=== PATIENT | female | born 1990 | race Caucasian/White ===

== ENCOUNTER 2016-06-05 13:26 | Emergency (ER) | payer OTHER ==
[~2016-06-05] VITALS: Ht 167.6 cm; Wt 69.0 kg
[2016-06-05 13:29] VITALS: TEMP 36.7; Ht 167.6 cm; Wt 69.0 kg
[2016-06-05] MEDS ORDERED: BCPILLS PO (13:38)
[2016-06-05] MEDS ORDERED: SERT50TA PO (13:38)
[2016-06-05 14:26] LABS: BASO % 0.9 %; BASO ABS # 0.07 K/uL (0-0.2); COMPLETE YES; EOS % 2.4 %; HEMATOCRIT 35.3 % (37-47); IG% 0.3 %; LYMPH % 16.1 %; LYMPH ABS # 1.27 K/uL (1.2-3.4); MEAN CELL VOLUME 83.8 fL (80-100); MEAN CORPUSCULAR HEMOGLOBIN 27.3 pg (25-34); MEAN CORPUSCULAR HGB CONC 32.6 g/dl (32-36); MEAN PLATELET VOLUME 9.9 fL (7.4-10.4); MONO % 6.9 %; NEUT % 73.4 %; PLATELET COUNT 319 K/uL (130-400); RED BLOOD COUNT 4.21 M/uL (4.2-5.4); WHITE BLOOD COUNT 7.87 K/uL (4.8-10.8)
[2016-06-05] MEDS ORDERED: AMOXICILLIN/CLAVULANATE TAB 875 MG TAB PO STA (14:41)
[2016-06-05] MEDS ORDERED: AMPICILLIN/SULBACTAM SOD INJ 3,000 MG in SODIUM CHLORIDE 0.9% 100ML 100 ML IV ONE (14:45)
[2016-06-05 14:58] LABS: BUN/CREATININE RATIO 14.7 (10-20); CALCIUM 8.6 mg/dl (8.5-10.1); CREATININE 0.84 mg/dl (0.60-1.20); POTASSIUM 4.6 mmol/L (3.5-5.1)
[2016-06-05] MEDS ORDERED: EMPTY 8 DRAM VIAL ONE (14:58)
[2016-06-05] MEDS ORDERED: AMOX875T PO (15:23)
[2016-06-05 15:43] VITALS: BP 122/82; PULSE 81; O2SAT 99
--- NOTE | 2016-06-05 17:15 | EMERGENCY ROOM VISIT NOTE ---
History Report prepared by Mariela: Armando Martinez Under the Supervision of: Dr. Jose Eduardo Mayer M.D. First contact with patient: 13:58 Chief Complaint: WOUND INFECTION Stated Complaint: CAT SCRATCH, SWOLLEN HOT ABSCESS, PUS History of Present Illness The patient is a 25 year old female who presents to the Emergency Room with complaints of an acute wound infection that started this morning. The patient was scratched by her cat when she was walking it in a park yesterday. The cat was frightened by a dog when the incident occurred. The patient notes that this morning the area where she was scratched became tender, swollen and warm. The patient had the wound cleaned at Urgent Care, but was referred to the ED for IV antibiotics. The patient's eye was not scratched. The cat is healthy and up to date on vaccinations. The patient does not have any known allergies. She denies any medical problems. Patient denies LOC, headache, fevers, chills, diaphoresis , visual changes, neck pain, chest pain, breathing difficulties, nausea, vomiting, abdominal pain, back pain, melena, hematochezia, urinary symptoms, numbness, weakness, lymphadenopathy, other rashes, or other complaints. Source of History: patient Onset: this morning Position: other (left cheek) Quality: other (cat scratch infection) Timing: other (acute) Review of Systems See HPI for pertinent positives and negatives. A total of ten systems were reviewed and were otherwise negative. Past Medical & Surgical Medical Problems: (1) No known problems Family History No pertinent family history Social History Smoking Status: Never Smoker Occupation Status: [employer] student Current/Historical Medications Scheduled Amoxicillin & Pot Clavulanate (Augmentin 875-125 mg), 875 MG PO BID Control Pills ( Control Pills), 1 TAB PO DAILY Sertraline Hcl (Zoloft), 125 MG PO DAILY Allergies Coded Allergies: No Known Allergies (Unverified , 06/05/16) Physical Exam Vital Signs Date Time Temp Pulse Resp B/P Pulse Ox O2 Delivery O2 Flow Rate FiO2 06/05/16 15:43 81 16 122/82 99 06/05/16 13:29 36.7 86 18 125/82 94 Room Air Physical Exam GENERAL: Awake, alert, well-appearing, in no distress HENT: Normocephalic, atraumatic. Oropharynx unremarkable. EYES: Normal conjunctiva. Sclera non-icteric. NECK: Supple. No nuchal rigidity. FROM. No JVD. RESPIRATORY: Clear to auscultation. CARDIAC: Regular rate, normal rhythm. Extremities warm and well perfused. Pulses equal. ABDOMEN: Soft, non-distended. No tenderness to palpation. No rebound or guarding. No masses. RECTAL: Deferred. MUSCULOSKELETAL: Chest examination reveals no tenderness. The back is symmetrical on inspection without obvious abnormality. There is no CVA tenderness to palpation. No joint edema. LOWER EXTREMITIES: Calves are equal size bilaterally and non-tender. No edema. No discoloration. NEURO: Normal sensorium. No sensory or motor deficits noted. SKIN: Swelling and induration of the left cheek area. Small puncture wound behind the left and, small abrasion behind the right ear, small scratch below the left jaw. Medical Decision & Procedures Laboratory Results 06/05/16 14:15 Red Blood Count 4.21, Mean Corpuscular Volume 83.8, Mean Corpuscular Hemoglobin 27.3, Mean Corpuscular Hemoglobin Concent 32.6, Mean Platelet Volume 9.9, Neutrophils (%) (Auto) 73.4, Lymphocytes (%) (Auto) 16.1, Monocytes (%) (Auto) 6.9, Eosinophils (%) (Auto) 2.4, Basophils (%) (Auto) 0.9, Neutrophils # (Auto) 5.78, Lymphocytes # (Auto) 1.27, Monocytes # (Auto) 0.54, Eosinophils # (Auto) 0.19, Basophils # (Auto) 0.07 06/05/16 14:15 Test 06/05/16 14:15 White Blood Count 7.87 K/uL (4.8-10.8) Red Blood Count 4.21 M/uL (4.2-5.4) Hemoglobin 11.5 g/dL (12.0-16.0) Hematocrit 35.3 % (37-47) Mean Corpuscular Volume 83.8 fL (80-100) Mean Corpuscular Hemoglobin 27.3 pg (25-34) Mean Corpuscular Hemoglobin Concent 32.6 g/dl (32-36) Platelet Count 319 K/uL (130-400) Mean Platelet Volume 9.9 fL (7.4-10.4) Neutrophils (%) (Auto) 73.4 % Lymphocytes (%) (Auto) 16.1 % Monocytes (%) (Auto) 6.9 % Eosinophils (%) (Auto) 2.4 % Basophils (%) (Auto) 0.9 % Neutrophils # (Auto) 5.78 K/uL (1.4-6.5) Lymphocytes # (Auto) 1.27 K/uL (1.2-3.4) Monocytes # (Auto) 0.54 K/uL (0.11-0.59) Eosinophils # (Auto) 0.19 K/uL (0-0.5) Basophils # (Auto) 0.07 K/uL (0-0.2) RDW Standard Deviation 42.0 fL (36.4-46.3) RDW Coefficient of Variation 13.7 % (11.5-14.5) Immature Granulocyte % (Auto) 0.3 % Immature Granulocyte # (Auto) 0.02 K/uL (0.00-0.02) Anion Gap 8.0 mmol/L (3-11) Est Creatinine Clear Calc Drug Dose 95.8 ml/min Estimated GFR () 112.0 Estimated GFR (Non- 96.6 BUN/Creatinine Ratio 14.7 (10-20) Calcium Level 8.6 mg/dl (8.5-10.1) Chemistry Specimen Hemolysis Laboratory results reviewed by me Medications Administered Medications (Trade) Dose Ordered Sig/Merritt Route Start Time Stop Time Status Last Admin Dose Admin Ampicillin Sodium/ Sulbactam Sodium/ Sodium Chloride (Unasyn Inj/Nss 100ml) 108 ml @ 200 mls/hr ONE ONCE IV 06/05/16 14:45 06/05/16 15:17 DC 06/05/16 15:04 200 MLS/HR Amoxicillin/ Clavulanate Potassium (Augmentin Tab) 875 mg NOW STAT PO 06/05/16 14:41 06/05/16 14:43 DC 06/05/16 15:42 875 MG ED Course 1400: The patient was evaluated by the medical student. 1430: The patient was evaluated in room C8. A complete history and physical exam was performed. 1441: Augmentin 875 mg PO. 1445: Ampicillin Sodium / Sulbactam Sodium 3000 mg / NSS 108 ml @ 200 mls/hr. 1525: I reevaluated the patient. Discussed results and discharge instructions: She verbalized understanding and agreement. The patient is ready for discharge. Medical Decision Triage Nursing notes reviewed and agree them. The patient's history was concerning for swelling and redness of the skin after cat scratch. Tetanus up-to-date.. Differential diagnosis: Etiologies such as cellulitis, necrotizing fasciitis, abscess, MRSA infection, dermatitis, drug eruption, as well as others were entertained.. Physical examination: The physical examination was consistent with cellulitis. No crepitus. No abscess. ER treatment provided: IV Unasyn On reassessment the patient felt better. Diagnostics interpreted by me: The labs revealed unremarkable CBC and chemistry panel Imaging studies: Deferred This appears to be isolated cellulitis from the cat scratches. The patient will be treated with Augmentin. She will follow-up closely with [facility]. If she worsens in any way she will come back. There is no indication for imaging or incision and drainage at this time. I did warn her that things may worsen and that may be necessary. I suspect that she should do well given the time from incident. By the evaluation outlined above emergent etiologies such as abscess, necrotizing fasciitis, , as well as others were deemed relatively unlikely. The patient was informed about the findings as listed above. All questions were answered and she was pleased with the treatment. Return instructions were outlined and the patient was discharged in stable condition. Outpatient prescription management: Augmentin Referral: The patient was referred back to her primary care physician for follow-up in 2 to 3 days for a recheck of the current condition. The chart was completed utilizing [employer] voice recognition software. Grammatical errors, random word insertions, pronoun errors, and incomplete sentences are an occasional consequence of this system due to software limitations, ambient noise, and hardware issues. Any formal questions or concerns about the content, text, or information contained within the body of this dictation should be directly addressed to the physician for clarification. Impression Primary Impression: Facial cellulitis Scribe Attestation The scribe's documentation has been prepared under my direction and personally reviewed by me in its entirety. I confirm that the note above accurately reflects all work, treatment, procedures, and medical decision making performed by me. Departure Information Dispostion Home / Self-Care Prescriptions Amoxicillin & Pot Clavulanate (Augmentin 875-125 mg) 1 Tab Tab 875 MG PO BID for 9 Days, #18 TAB Prov: Jose Eduardo Mayer MD 06/05/16 Referrals Clara Coates M.D. (PCP) Forms HOME CARE DOCUMENTATION FORM, IMPORTANT VISIT INFORMATION, WORK / SCHOOL INSTRUCTIONS Patient Instructions My [facility] Additional Instructions CELLULITIS INSTRUCTIONS: Amoxicillin Clavulanate (Augmentin) 875mg: Take one pill twice daily for 10 days for your infection. All antibiotics can cause diarrhea. If this occurs and you feel worse or it does not resolve in 1-2 days follow up with your doctor or return to the Emergency Department as this could be signs of serious underlying problems. Any medication can cause an allergic reaction, stop the pills immediately and return to the ER for rash, hives, breathing difficulties, or swelling. Ibuprofen(Motrin, Advil) may be used for fever or pain. Use 600mg every six hours as needed. Take with food. Avoid using more than 2400mg in a 24 hour period. Do not use 2400mg per day for more than three consecutive days without physician direction. Prolonged inappropriate use can lead to stomach upset or ulcers. (AND/OR) Acetaminophen(Tylenol) may be used for fever or pain. Use 1000mg every six hours as needed. Avoid using more than 4000mg in a 24 hour period. Warm compresses to the affected area 4 times daily for 15-20 minutes. Rest and drink plenty of fluids. Continue current medications. Return to the ER for severe pain, persistent fevers, spreading redness, or any worsening of your condition. Follow up with your primary physician within 2-3 days for a recheck of the current condition.
== END 2016-06-05 15:46 | disposition home or self-care (01) ==
LOC: C.EDB 13:29 → C.EDC 15:46
DX: L03.211 Cellulitis of face (principal); S00.81XA Abrasion of other part of head, initial encounter; S11.93XA Puncture wound without foreign body of unspecified part of neck, initial encounter; S10.91XA Abrasion of unspecified part of neck, initial encounter; W55.03XA Scratched by cat, initial encounter; Y92.830 Public park as the place of occurrence of the external cause; Y93.K1 Activity, walking an animal

== ENCOUNTER → 2017-01-18 | Outpatient (CLI) | payer OTHER ==
[~2017-01-18] MED LIST: BCPILLS PO; SERT50TA PO
== END | disposition home or self-care (01) ==
LOC: C.LAB1850 14:36
PROVIDERS: ATTEND Internal Medicine Pulmonary Disease
DX: T78.1XXA Other adverse food reactions, not elsewhere classified, initial encounter (principal); X58.XXXA Exposure to other specified factors, initial encounter

== ENCOUNTER → 2017-04-18 | Outpatient (CLI) | payer OTHER ==
--- NOTE | 2017-04-18 08:15 | DIAGNOSTIC IMAGING REPORT ---
(CHEST) THORAX WITHOUT CLINICAL HISTORY: R93.[address] of the chest COMPARISON STUDY: November 26, 2014 CT DOSE: 253.22 mGy.cm TECHNIQUE: CT of the thorax was performed from the thoracic inlet to the lung bases. Images are reviewed in the axial, sagittal, and coronal planes. IV contrast was not administered for this examination. A dose lowering technique was utilized adhering to the principles of ALARA. FINDINGS: Thyroid: Imaged portions of the thyroid gland are normal in appearance. Thoracic aorta: The thoracic aorta is normal in course and caliber, noting standard 3 vessel arch anatomy. Heart: The heart is normal in size and configuration, without pericardial effusion. Lungs and pleural spaces: There is a 12 mm solid pulmonary nodule within the superior segment of the right lower lobe. This contains a coarse central calcification. This nodule remains similar to the prior study, and is felt to be postinflammatory. No new or enlarging pulmonary nodules are visualized. There are no pleural effusions Mediastinum: There is no mediastinal lymphadenopathy. Valery: There is a calcified right hilar lymph nodes likely postinflammatory Axilla: Clear. Upper abdomen: Partially visualized upper abdominal viscera is within normal limits. Skeletal structures: There are no lytic or blastic osseous lesions. IMPRESSION: 1. Stable calcified right hilar lymph node, and stable 12 mm right lower lobe pulmonary nodule containing a central calcification. The findings are consistent with a postinflammatory granuloma. Electronically signed by: Casper Mishra M.D. 04/18/2017 8:13 AM Dictated Date/Time: 04/18/2017 8:09 AM
== END | disposition home or self-care (01) ==
LOC: C.CTS 07:55
PROVIDERS: ATTEND Internal Medicine Critical Care Medicine
DX: R93.8 Abnormal findings on diagnostic imaging of other specified body structures (principal)

== ENCOUNTER → 2017-05-05 | Day surgery (SDC) | payer OTHER ==
[~2017-05-05] VITALS: Ht 167.6 cm; Wt 77.0 kg
[2017-05-05] VITALS (8 sets, daily range): BP systolic 103–148; BP diastolic 62–73; PULSE 77–97; TEMP 36.9–37.2; O2SAT 98–100; Ht 167.6 cm; Wt 77.0 kg
[~2017-05-05] MED LIST changes: +FENTANYL CITRATE INJ 50 MCG/1 ML 2 ML VIAL IV ONE; +LIDOCAINE 4% INH SOLN 4 ML BTL TOP ONE; +LIDOCAINE HCL 2% LOCAL 50ML VIAL INSTIL ONE; +LIDOCAINE VISCOUS 2% 100ML TOP ONE; +MIDAZOLAM HCL 5 MG/ML 1 ML VIAL IV ONE
--- NOTE | 2017-05-05 06:10 | History and Physical ---
History & Physical Date of Service May 05, 2017. History & Physical 26-year-old female here for evaluation of bronchoscopic evaluation of latent tuberculosis: The patient is notable will travel and has been to around 26 different countries. 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 At that time she describes being treated for 9 months with INH. Since that time the patient does note constant night sweats or she wakes up drenched on most evenings. She has been traveling will with her family as well as by herself to areas of high endemic TB [place], [place]. Back in November of 2014 the patient had follow -up imaging both chest especially as well as CT imaging which noted a right upper lobe nodule which had a central calcified pattern but also had left upper lobe ground-glass nodule with diffuse tree-in-bud changes. 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 Since then the patient has noted IBS type signs and symptoms and even you food allergies to Zucchini and Kale which she had never had before. Patient was then followed up at the [facility] with CXR showing continuation of her right upper lobe nodule but I do not have that report and/or the imaging at this time. She currently denies: Fever, chills, unintentional weight loss, cough, pleurisy, classic cardiac chest pain, myalgias, arthralgias or hemoptysis. Parasites Entamoeba Histolytica Blastocystis hominis RAST test Zucchini IgE: <0.35 PmHx: 1. Adverse food reaction 2. Allergic rhinitis 3. Parasitic infection 4. Positive PPD 5. Anxiety 6. Severe abdominal pain April 2016 Surgical history 1. Knee surgery Social history Education level: Graduate school Tobacco: Never smoker Status: Single Alcohol: Social use no history of abuse Medications 1. Zoloft 2. Zyrtec 10 mg Patient emailed later this information: July 26, 2016: Diarrhea and stomach cramps prescribed ? For symptoms: Cross PVP x60ml Stool sample results: Color-coffee Appearance-semi day area Mucus-scares Blood-n/a Food remainsabundant PH--7.0 Parasites: entamoeba hystolytica, blastocystis hominis The erythrocytes--regular quantity Bacteriaabundant Medications prescribed Cefexime 500mg QD x 5 days Albendazole 400mg once weekly x 2 weeks Tinidazole 500mg QID x 2 August 11, 2016: A but by turned into skin infection, treated: cephalexin 500mg 12hrs x 5days August 28, 2016: [place] physician ordered C diff, feces culture, ova and parasites: Noted to be within normal limits per the patient Cipro 500 mg b.i.d. times 10 days Vital Signs Height: 5 ft 6.5 in Weight: 167 lb 7 oz BMI Calculated: 26.62 BSA Calculated: 1.86 Blood Pressure: 126 / 80, LUE, Sitting Respiration: 18 Heart Rate: 89 Temperature: 98.1 F O2 Saturation: 98, RA Constitutional General appearance: No acute distress, well appearing and well nourished. Eyes Conjunctiva and lids: No swelling, erythema or discharge. Pupils and irises: Equal, round and reactive to light. Ears, Nose, Mouth, and Throat External inspection of ears and nose: Normal. Otoscopic examination: Tympanic membranes translucent with normal light reflex. Canals patent without erythema. Oropharynx: Normal with no erythema, edema, exudate or lesions. Pulmonary Respiratory effort: No increased work of breathing or signs of respiratory distress. Auscultation of lungs: Clear to auscultation. Cardiovascular Palpation of heart: Normal PMI, no thrills. Auscultation of heart: Normal rate and rhythm, normal S1 and S2, without murmurs. Examination of extremities for edema and/or varicosities: Normal. Abdomen: Non-tender, no masses. Liver and spleen: No hepatomegaly or splenomegaly. Lymphatic Palpation of lymph nodes in neck: No lymphadenopathy. Musculoskeletal Gait and station: Normal. Digits and nails: Normal without clubbing or cyanosis. Inspection/palpation of joints, bones, and muscles: Normal. Skin Skin and subcutaneous tissue: Normal without rashes or lesions. Neurologic Cranial nerves: Cranial nerves 2-12 intact. Reflexes: 2+ and symmetric. Sensation: No sensory loss. Psychiatric Orientation to person, place, and time: Normal. Mood and affect: Normal.
--- NOTE | 2017-05-05 09:37 | History & Physical Bridge Note ---
H&P Re-Evaluation Bridge Note: I have examined the patient, reviewed the History & Physical and in the interval since the performance of the History & Physical I have noted the following changes of clinical significance: No changes noted
--- NOTE | 2017-05-05 09:38 | Pre Sedation Assessment ---
Pre Sedation Assessment General Date of Sedation: May 05, 2017. Vital Signs Past 12 Hours Date Time Temp Pulse Resp B/P (MAP) Pulse Ox O2 Delivery O2 Flow Rate FiO2 05/05/17 08:18 36.9 77 20 107/68 (81) 98 Room Air 05/05/17 08:12 36.9 77 20 107/68 (81) 98 Room Air Review Cardiovascular: regular rate, rhythm, no edema, no gallop, no JVD, no murmur, normal peripheral pulses Lungs: chest non-tender, lungs clear, normal breath sounds, no respiratory distress, no accessory muscle use Pre-Sedation Airway Assessment Smoking Status: Never Smoker Hx of Sleep Apnea: No Hx of difficult intubation: No Short Thick Neck: No Thyro-mental Distance: > 3 Finger Breadths Oral Cavity: WNL Mallampati Classification: Class I ASA Classification: Class I NPO Status Date of Last Intake of Fluids: May 04, 2017 Time of Last Intake of Fluids: 2200 Date of Last Intake of Solids: May 04, 2017 Time of Last Intake of Solids: 2199 Procedure Planning Contraindications for Sedation: None Current Medications Reviewed: Yes Notes The planned sedation has been discussed with the patient. Informed Consent was obtained. I have identified the patient, determined the appropriateness of sedation and have assessed the patient immediately prior to the procedure. All medicine(s) and interventions are by my order.
--- NOTE | 2017-05-05 10:41 | Bronchoscopy Procedure Note ---
Bronchoscopy Procedure Note Procedure: Bronchoscopy, conscious sedation, bronchial washing Consent: Obtained through the patient placed into the chart Pre-procedural diagnosis: Latent tuberculosis possibly reactive Post-procedural diagnosis: Latent tuberculosis Start time: 1010 End time: 1030 Total time: 20minutes Analgesia: 2% liquid lidocaine: Via nebulizer 4% gel lidocaine: Via right naris 2% liquid lidocaine: Via bronchoscopy Sedation: Versed IV: 5mg Fentanyl IV: 125g Procedure: The Olympus video bronchoscope was used for this procedure and passed down through the right naris Right naris/posterior naris/posterior oropharynx: Anatomically within normal limits, diffuse erythema noted in the right naris as well as the posterior naris Glottis: Anatomically within normal limits Vocal cords: Proper abduction and abduction, anatomically within normal limits Subglottis/trachea/Li: Anatomically within normal limits Right bronchial tree: Right mainstem bronchus: Anatomically within normal limits Right upper lobe: Anatomically within normal limits Bronchus intermedius: Anatomically within normal limits Right middle lobe: Anatomically within normal limits Right lower lobe: Anatomically within normal limits Findings: No significant findings noted Left bronchial tree: Left mainstem bronchus: Anatomically within normal limits Left upper lobe: Anatomically within normal limits Lingula: Anatomically within normal limits Left lower lobe: Anatomically within normal limits Findings: No significant findings noted Bronchial alveolar lavage: Superior subsegment right lower lobe EBL: None Complications: None Follow-up: [facility]SU
--- NOTE | 2017-05-05 10:42 | Post Sedation Assessment ---
Post Sedation Assessment General Date of Sedation May 05, 2017. Vital Signs: Vital Signs Past 12 Hours Date Time Temp Pulse Resp B/P (MAP) Pulse Ox O2 Delivery O2 Flow Rate FiO2 05/05/17 10:35 91 14 116/80 98 Oxymask 6 05/05/17 10:30 96 19 121/89 98 Oxymask 6 05/05/17 10:25 72 15 116/70 100 Oxymask 6 05/05/17 10:20 91 18 109/76 100 Oxymask 6 05/05/17 10:15 82 21 119/69 100 Oxymask 6 05/05/17 10:10 82 21 113/82 100 Oxymask 6 05/05/17 10:02 83 21 107/68 100 Oxymask 6 05/05/17 08:18 36.9 77 20 107/68 (81) 98 Room Air 05/05/17 08:12 36.9 77 20 107/68 (81) 98 Room Air Post Procedure Recovery Score Activity: (2) Moves 4 extremities * Respiration: (2) Deep breath/cough Circulation: (2) +/-20% PreAnes Value Consciousness: (2) Fully Awake Oxygen Saturation: (1) O2 needed for >90% Post Anesthesia Score: 9 Discharge Sedation Level of Care: Fast Track Phase II Post Sedation Plan On clinical assessment, the patient appears to have tolerated the sedation without complications. Patient is recovering as anticipated. Patient will continue to be monitored by nursing and may be discharged when sedation discharge criteria are met per below protocol. Upon Completions of procedure and additional 15 minutes continue every 5 minute vital signs and the P.A.R. score; then discharge to a Phase I or Fast Track to Phase II per the following guidelines: * Discharge Patient to appropriate Phase II area if PAR is 8 or greater or return to pre- procedure baseline. The post - procedure orders will be as directed. * If PAR score is less than 8 or not return to pre-procedure baseline then patient will follow Phase I monitoring till PAR is reached for Phase II. The Phase I may be done in procedure room or may call to secure a Phase I area. * If naloxone or flumazenil are used for reversal, hold in Phase I for an additional 60 -120 minutes before discharge to Phase II. Please call the Sedation Physician to re-evaluate and complete post-note for discharge to Phase II area. Do NOT discharge from procedure sedation or Phase 1 until post- sedation evaluation note is complete by procedure /sedation MD Sedation Discharge Instructions to be given to the patient at discharge to home.
--- NOTE | 2017-05-05 10:44 | Discharge Instructions ---
Discharge Instructions Date of Service May 05, 2017. Admission Reason for Admission: Pulmonary Nodule *Celso Wants Flouroscopy* Discharge Discharge Diagnosis / Problem: Latent tuberculosis ruling out any active disease Discharge Goals Goal(s): Diagnostic testing Activity Recommendations Activity Limitations: resume your previous activity . Instructions / Follow-Up Instructions / Follow-Up Follow-up with the not any pulmonary division Current Hospital Diet Patient's current hospital diet: Discharge Diet Recommended Diet: Regular Diet Procedures Procedures Performed: BRONCHOSCOPY, conscious sedation, bronchial lavage Pending Studies Studies pending at discharge: no Medical Emergencies . Who to Call and When: Medical Emergencies: If at any time you feel your situation is an emergency, please call 911 immediately. . Non-Emergent Contact Non-Emergency issues call your: Manager Poker Call Non-Emergent contact if: temperature is above 101 . . "Provider Documentation" section prepared by Samuel Houston. .
== END | disposition home or self-care (01) ==
LOC: C.ACU 07:32
PROVIDERS: ATTEND Internal Medicine Critical Care Medicine
DX: R76.11 Nonspecific reaction to tuberculin skin test without active tuberculosis (principal)

== ENCOUNTER → 2017-05-19 | Outpatient (CLI) | payer OTHER ==
[~2017-05-19] MED LIST changes: -FENTANYL CITRATE INJ 50 MCG/1 ML 2 ML VIAL IV ONE; -LIDOCAINE 4% INH SOLN 4 ML BTL TOP ONE; -LIDOCAINE HCL 2% LOCAL 50ML VIAL INSTIL ONE; -LIDOCAINE VISCOUS 2% 100ML TOP ONE; -MIDAZOLAM HCL 5 MG/ML 1 ML VIAL IV ONE
[2017-05-19 16:59] LABS: ALBUMIN 3.4 gm/dl (3.4-5.0); ALT/SGPT 19 U/L (12-78); AST/SGOT 17 U/L (15-37); BLOOD UREA NITROGEN 11 mg/dl (7-18); CALCIUM 8.3 mg/dl (8.5-10.1); CARBON DIOXIDE 27 mmol/L (21-32); GLUCOSE 111 mg/dl (70-99); POTASSIUM 3.9 mmol/L (3.5-5.1); SODIUM 136 mmol/L (136-145)
[2017-05-19 17:10] LABS: ALKALINE PHOSPHATASE 58 U/L (45-117); TOTAL PROTEIN 6.7 gm/dl (6.4-8.2)
[2017-05-19 17:34] LABS: BASO ABS # 0.07 K/uL (0-0.2); EOS % 3.2 %; EOS ABS # 0.22 K/uL (0-0.5); HEMATOCRIT 33.9 % (37-47); HEMOGLOBIN 10.7 g/dL (12.0-16.0); IG# 0.01 K/uL (0.00-0.02); LYMPH % 22.8 %; LYMPH ABS # 1.55 K/uL (1.2-3.4); MEAN CELL VOLUME 86.5 fL (80-100); MEAN CORPUSCULAR HEMOGLOBIN 27.3 pg (25-34); MEAN CORPUSCULAR HGB CONC 31.6 g/dl (32-36); MEAN PLATELET VOLUME 9.7 fL (7.4-10.4); MONO % 5.3 %; MONO ABS # 0.36 K/uL (0.11-0.59); NEUT % 67.6 %; PLATELET COUNT 386 K/uL (130-400); RED CELL DISTRIBUTION WIDTH CV 14.3 % (11.5-14.5); RED CELL DISTRIBUTION WIDTH SD 44.7 fL (36.4-46.3); WHITE BLOOD COUNT 6.81 K/uL (4.8-10.8)
[2017-05-23 12:17] LABS: ANA SCREEN TC 249X NEGATIVE (NEGATIVE)
== END | disposition home or self-care (01) ==
LOC: C.LAB1850 14:13
PROVIDERS: ATTEND Internal Medicine Infectious Disease
DX: R61 Generalized hyperhidrosis (principal)